=== PATIENT | male | born 1995 | race Caucasian/White ===

== ENCOUNTER 2018-07-23 19:36 | Emergency (ER) | payer SELFPAY ==
[2018-07-23] MEDS ORDERED: Ketorolac Tromethamine 60 MG/2 ML VIAL ONE (20:31)
--- NOTE | 2018-07-23 21:01 | CT ---
CT LUMBAR SPINE NONCONTRAST: 07/23/2018 HISTORY: A 23-year-old male with low back pain and lumbar radiculopathy. FINDINGS: There are five lumbar type vertebrae. Vertebral body heights are maintained. Alignment is normal. No severe disk space narrowing at any level. No scoliosis. No spondylolysis. 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 No significant central spinal canal stenosis at any other level. Diffuse disk bulge at L5-S1 is the mos t prominent of all levels. At least mild bilateral neural foraminal stenosis at the last three level s. No chidi, severe nerve root compression identified at any level. No high-grade facet DJD at any level. IMPRESSION: 1) Multilevel mild degenerative disk changes, including disk bulges. 2) For persistent lumbar radiculopathy, recommend noncontrast MRI on an elective basis. POS: [facility]
== END 2018-07-23 21:20 | disposition home or self-care (01) ==
LOC: ERS 19:36
DX: M51.16 Intervertebral disc disorders with radiculopathy, lumbar region (principal); F17.210 Nicotine dependence, cigarettes, uncomplicated
CPT/HCPCS: 72131; 96372; J1885